=== PATIENT | female | born 1945 | race Hispanic/Latino ===

== ENCOUNTER 2017-11-22 14:01 | Outpatient (CLI) | payer MEDICARE, MEDICAID | END 2017-11-22 14:02 | disposition home or self-care (01) | LOC: BICRAD 14:01 | PROVIDERS: ATTEND Internal Medicine Rheumatology | DX: M05.79 Rheumatoid arthritis with rheumatoid factor of multiple sites without organ or systems involvement (principal) | CPT/HCPCS: 71046 ==

== ENCOUNTER 2018-05-02 09:53 | Outpatient (CLI) | payer MEDICARE, MEDICAID ==
--- NOTE | 2018-05-02 13:07 | MRI ---
MRI RIGHT SHOULDER WITHOUT CONTRAST: HISTORY: M25.511, right shoulder pain. Strain of right rotator cuff, S46.011A. COMPARISON: None. FINDINGS: BICEPS TENDON: Mild extraarticular biceps tenosynovitis. Moderate intraarticular tendinosis with in terstitial delamination type tear, extending to the supraglenoid tubercle. LABRUM: There is tear throughout the superior labrum, anterior and posterior, to the supraglenoid tu bercle. ROTATOR CUFF: Full-thickness, full-width supraspinatus and infraspinatus tendon tears from the footp rint, which are retracted through the mid humeral head. The torn fibers are mildly tendinotic. MUSCLES: There is edema of the supraspinatus and infraspinatus muscles. There is approximately 30% to 40% atrophy of both muscles. Teres minor is intact. The subscapularis muscle is normal. BONES: Moderate degenerative disease of the acromioclavicular joint. No acute fracture. IMPRESSION: 1. Full-thickness, full-width supraspinatus tendon tears, from the footprint, retracting the mid hum eral head, with 30% to 40% atrophy of the musculature. 2. Superior labral tearing, anterior and posterior to the biceps tendon anchor. 3. Articulation of the humeral head with the undersurface of the acromion due to the full-thickness rotator cuff tear, with subacromial and subdeltoid bursal effusion, moderate. 4. Interstitial delamination type tear, intraarticular biceps tendon. POS: [facility]
== END 2018-05-02 09:54 | disposition home or self-care (01) ==
LOC: BICMRI 09:53
PROVIDERS: ATTEND Orthopaedic Surgery
DX: S46.011A Strain of muscle(s) and tendon(s) of the rotator cuff of right shoulder, initial encounter (principal); S43.401A Unspecified sprain of right shoulder joint, initial encounter; M75.121 Complete rotator cuff tear or rupture of right shoulder, not specified as traumatic; M25.411 Effusion, right shoulder

== ENCOUNTER 2018-07-20 07:35 | Inpatient (IN) | payer MEDICARE, MEDICAID ==
[2018-07-19 11:06] VITALS: BMI 30.2
[2018-07-20] MEDS ORDERED: Sodium Chloride 0.9% 100 ML ONE (08:20)
[2018-07-20] MEDS ORDERED: Tranexamic Acid 1,000 MG/10 ML VIAL ONE (08:20)
--- NOTE | 2018-07-20 08:54 | RAD ---
Portable chest: HISTORY: Preop COMPARISON: 11/22/2017 FINDINGS: Lung ji are clear. Heart and mediastinum appear unremarkable. Vascularity is normal. Visualized osseous structures unremarkable. IMPRESSION: No acute finding
[2018-07-20] MEDS ORDERED: Fentanyl 100 MCG/2 ML VIAL ONE (08:59)
[2018-07-20] MEDS ORDERED: Midazolam HCl 2 mg/2 ml Vial ONE (08:59)
[2018-07-20 09:03] LABS: Bilirubin Negative (Negative); Blood, Urine Negative (Negative); Clarity CLOUDY (Clear); Glucose, Urine (Dipstick) Negative (Negative); Leukocyte Large (Negative); Nitrite Positive (Negative); Protein, Urine (Dipstick) Negative (Neg-Trace); Specific Gravity, Urine 1.014 (1.002-1.036)
[2018-07-20] MEDS ORDERED: Scopolamine 1.5 mg/72 hour Patch ONE (09:04)
[2018-07-20 09:07] LABS: Bacteria/HPF 4+ HPF (None Seen); Hyaline Casts/LPF 0-3 HYALINE CAST LPF (0-3 Hyaline); Pathc Cast-AUWi Flag 0.27 (0-2.49); RBC/HPF 0-3 HPF (0-3); Squamous Epithelial 0-3 HPF (0-3); WBC/HPF 21-50 HPF (0-3)
[2018-07-20] MEDS ORDERED: Ondansetron PF 4 MG/2 ML Vial ONE ×2 (09:11→14:55)
[2018-07-20 09:18] LABS: Urine Culture Reflex Yes Yes
[2018-07-20 09:21] LABS: Anion Gap 12 mmol/L (10-20); BUN (Urea Nitrogen) 9 mg/dL (9.8-20.1); Calc. Creatinine Clearance 87 mL/min (70-130); Calcium 9.4 mg/dL (7.8-10.44); Carbon Dioxide 24 mmol/L (23-31); Chloride 109 mmol/L (98-107); Estimated GFR-MDRD Greater than 90; Glucose 87 mg/dL (83-110); Potassium 4.2 mmol/L (3.5-5.1); Sodium 141 mmol/L (136-145)
[2018-07-20] MEDS ORDERED: Zolpidem Tartrate 5 MG TAB PO PRN (09:27)
[2018-07-20] MEDS ORDERED: traMADol HCl 50 MG TAB PO PRN (09:27)
[2018-07-20] MEDS ORDERED: Promethazine HCl 25 MG/ML VIAL IM PRN ×2 (09:27→12:08)
[2018-07-20] MEDS ORDERED: Ropivacaine 0.2% 550 ML 550 ML NERVE BLCK SCH (09:27)
[2018-07-20] MEDS ORDERED: Fentanyl 100 MCG/2 ML VIAL IV PRN (09:28)
[2018-07-20] MEDS ORDERED: HYDROcodone/Acetaminophen 7.5/325 mg Tablet PO PRN ×2 (09:29→09:30)
[2018-07-20] MEDS ORDERED: Acetaminophen 500 MG TAB PO PRN (09:33)
[2018-07-20 09:46] LABS: #Eosinphils 0.1 thou/uL (0.0-0.7); #Lymphocytes 1.1 thou/uL (1.20-3.40); #Monocytes 0.5 thou/uL (0.11-0.59); #Neutrophils 4.1 thou/uL (1.40-6.50); %Basophils 0.5 % (0.0-1.0); %Eosinophils 0.9 % (0.0-10.0); %Lymphocytes 19.9 % (21.0-51.0); %Monocytes 7.9 % (0.0-10.0); %Neutrophils 70.8 % (42.0-75.0); Mean Corpuscular HGB CONC 31.9 g/dL (32.0-36.0); Mean Corpuscular Hemoglobin 26.8 pg (27.0-31.0); Mean Platelet Volume 7.5 fL (7.4-10.4); Platelet Count 254 thou/uL (130-400); RBC Distribution Width 16.1 % (11.5-14.5); Red Blood Cell (RBC) Count 4.12 mill/uL (4.20-5.40); White Blood Cell (WBC) Count 5.8 thou/uL (4.8-10.8)
[2018-07-20 09:53] LABS: PTT 30.2 SEC (22.9-36.1); Prothrombin Time 13.7 SEC (12.0-14.7)
[2018-07-20] MEDS ORDERED: Levofloxacin 500 mg/D5W 100 ml Premix Bag ONE (10:11)
[2018-07-20] MEDS ORDERED: Ondansetron HCl/PF 4 MG/2 ML Vial IVP PRN (12:08)
[2018-07-20] MEDS ORDERED: Morphine Sulfate 2 MG/ML SYRINGE SLOW IVP PRN (12:08)
[2018-07-20] MEDS ORDERED: HYDROmorphone 2 MG/ML VIAL SLOW IVP PRN (12:08)
[2018-07-20] MEDS ORDERED: Promethazine HCl 25 MG/ML VIAL SLOW IVP PRN (12:08)
[2018-07-20] MEDS ORDERED: Methocarbamol 1 GM/10 ML VIAL SLOW IVP PRN (12:28)
[2018-07-20] MEDS ORDERED: Bisacodyl 10 MG SUPP PR PRN (12:28)
[2018-07-20] MEDS ORDERED: Methocarbamol 500 MG TAB PO PRN (12:28)
[2018-07-20] MEDS ORDERED: diphenhydrAMINE 50 MG CAP PO PRN (12:28)
[2018-07-20] MEDS ORDERED: Milk Of Magnesia 30 ML UDCUP PO PRN (12:28)
[2018-07-20] MEDS ORDERED: Ropivacaine 0.2% HCl/PF (40 MG/20 ML VIAL) ONE (13:18)
[2018-07-20] MEDS ORDERED: Ropivacaine 0.5% HCl/PF (150 MG/30 ML VIAL) ONE (13:18)
[2018-07-20] MEDS ORDERED: PHENYLEPHRINE-NS 100 MCG/ML 10 ML SYRINGE ONE (14:55)
[2018-07-20] MEDS ORDERED: PROPOFOL 200 MG/20 ML VIAL ONE (14:55)
[2018-07-20] MEDS ORDERED: Rocuronium Bromide 10 MG/ML (10ML VIAL) ONE (14:55)
[2018-07-20] MEDS ORDERED: ePHEDrine 50 MG/ML VIAL ONE (14:55)
[2018-07-20] MEDS ORDERED: Lidocaine 1% PF 5 ML VIAL ONE (14:55)
[2018-07-20] MEDS ORDERED: Glycopyrrolate 0.2 MG/ML 5 ML SYRINGE ONE (14:55)
[2018-07-20] MEDS ORDERED: Dexamethasone 20 MG/5 ML VIAL ONE (14:55)
[2018-07-20] MEDS: CeleCOXIB 100 MG CAP PO SCH (16:51)
[2018-07-20] MEDS: CEFAZOLIN 2 GM in Premix Bag 1 BAG IVPB SCH (16:54)
--- NOTE | 2018-07-20 19:10 | RAD ---
XR Shoulder Rt 2 View History: [Postop] Comparison: None. Findings: Satisfactory appearance right reverse total arthroplasty. Ribs are unremarkable. Impression: Satisfactory postoperative appearance.
[2018-07-20] MEDS: Famotidine 20 MG TAB PO SCH (19:35)
[2018-07-21] MEDS: traMADol HCl 50 MG TAB PO PRN ×2 (00:47→09:22)
[2018-07-21] MEDS: CEFAZOLIN 2 GM in Premix Bag 1 BAG IVPB SCH (00:48)
[2018-07-21 06:38] LABS: Hemoglobin 10.2 g/dL (12.0-16.0); Mean Corpuscular HGB CONC 30.8 g/dL (32.0-36.0); Mean Corpuscular Hemoglobin 26.1 pg (27.0-31.0); Mean Corpuscular Volume 84.7 fL (78.0-98.0); Mean Platelet Volume 7.6 fL (7.4-10.4); Platelet Count 255 thou/uL (130-400); RBC Distribution Width 16.2 % (11.5-14.5); Red Blood Cell (RBC) Count 3.89 mill/uL (4.20-5.40)
[2018-07-21] MEDS ORDERED: Ciprofloxacin 500 MG TAB PO SCH (08:15)
--- NOTE | 2018-07-21 09:03 | OP ---
DATE OF PROCEDURE: 07/20/2018 PREOPERATIVE DIAGNOSIS: Right supraspinatous tendon full-thickness tear with degenerative changes, glenohumeral joint. POSTOPERATIVE DIAGNOSIS: Right supraspinatous tendon full-thickness tear with degenerative changes, glenohumeral joint. PROCEDURE PERFORMED: Right reverse shoulder arthroplasty. [employer]OVE SUPERINTENDENT: Bryant Diaz PA-C. ANESTHESIOLOGIST: Dr. Crespo. ANESTHESIA: The patient received general endotracheal intubation and interscalene block. ESTIMATED BLOOD LOSS: 200 mL. TOURNIQUET TIME: None. IMPLANTS: A Tornier 25 mm baseplate with a 29 x 29 nonlocking screw, 35 and 20 locking screws. The patient received a 36 mm central sphere, a flex 3B stem, a flex central +0 and a +6 mm poly. ANTIBIOTICS: Ancef 2 g, vancomycin 1 g, Levaquin 500 mg. The patient received TXA 1 g. COMPLICATIONS: She had an abrasion of her skin while positioning her partial-thickness skin tear. HISTORY OF PRESENT ILLNESS: Ms. Carnes is a 72-year-old female, who presented to my clinic with right shoulder pain. The patient had had pain since March when she had a pop in her shoulder. The patient had difficulty with her activities. She had severe pain. The patient had MRI evidence showing a full-thickness supraspinatus and infraspinatus tear with retraction. She had failed conservative management and the patient desired surgery because of her pain in her right shoulder. I discussed with her the risks and benefits of right rotator cuff repair versus reverse shoulder arthroplasty. Discussed given the patient's atrophy as well as the size of the tear, I was concerned with her soft tissues that she may not be able to heal this, I felt that reverse would be consistent outcome. I discussed both options and the patient elected for reverse shoulder arthroplasty with biceps tenodesis. I discussed risks and benefits of surgery to include pain, scar, bleeding, infection, damage to vital structures, nonunion, fracture above and below the stem, need for further surgeries, loss of life or limb. The patient understood the risks and benefits of procedure and she elected to proceed. DESCRIPTION OF PROCEDURE: Time-out was performed designating the patient's right upper extremity as the operative site based on site, consents, markings. After time-out, the patient's right upper extremity was prepped and draped in sterile fashion. She was placed in a beach chair position. We made a deltopectoral incision down through skin, found her vein, retracted laterally and caudad portion of it was damaged; therefore, we ligated the vein. We then came into the deltopectoral interval, came down, found her biceps, peeled back her subscapularis and neck, as we reduced the head, she had a completely bald superior supraspinatus and infraspinatus tear with a large central cartilage defect in her humerus. We continued with cutting the head down, removed the osteophyte, we recut, broached up to a 2, finally reamed down to a 3, put our man hole cover in position and moved to the patient's glenoid. We did a 360 degree release, staying on bone, we cleaned up all. The patient had a very small glenoid face, so I placed my glenoid baseplate in a more superior position to ensure I had good coverage. I placed 25 mm baseplate, and liked overall alignment and position, 1.5 mm inferior lip. We then drilled our center hole, cleaned up all the osteophyte inferiorly and throughout. We then placed our baseplate in position, placed screw anterior, screw posterior, nonlocking and we then placed the superior inferior locking screw. We then placed the patient's baseplate on the glenoid and felt that she had good overhang. She has lateralization of her remainder of her lateral aspect of her scapula. We moved back to the glenoid, went up to size 3, reduced it, it was a little tight, so we smoothed down the surface, took some bone to decrease the tightness. Placed central 6 mm poly, reduced the shoulder in position, liked the overall alignment. She was not taut or conjoined flexion-extension and rotation were good overall. The motion was good and I was overall pleased with the patient's alignment. We then washed. We placed a #5 Ethibond around the shaft and used that to sew down the tendon using another segment of the 5, sewed down the tendon, cut our stitches. The biceps was too small and had no real soft tissue adhered to; therefore, thus allowed it to be a tenotomy. We washed. We closed the deltopectoral interval subcu and skin with bijal. The patient will be admitted to the hospital. She has allergies to multiple medications. We will start her on Tylenol as her main favorite for treatment of pain. We will follow inhouse postoperatively. Job ID: [id number] [facility]ITAL[facility]akayla
[2018-07-21] MEDS: Famotidine 20 MG TAB PO SCH ×2 (09:21→19:39)
[2018-07-21] MEDS: Ondansetron PF 4 MG/2 ML Vial IVP PRN ×2 (09:21→19:42)
[2018-07-21] MEDS: CeleCOXIB 100 MG CAP PO SCH (09:21)
[2018-07-21] MEDS: Cipro 250 MG TAB PO SCH (19:39)
[2018-07-22] MEDS: Cipro 250 MG TAB PO SCH (05:10)
[2018-07-22] MEDS: traMADol HCl 50 MG TAB PO PRN (08:47)
[2018-07-22] MEDS: Famotidine 20 MG TAB PO SCH (08:47)
[2018-07-22] MEDS: CeleCOXIB 100 MG CAP PO SCH (08:47)
[2018-07-22] MEDS: Ondansetron PF 4 MG/2 ML Vial IVP PRN (08:48)
[2018-07-22] MEDS ORDERED: Scopolamine 1.5 mg/72 hour Patch TD SCH (09:30)
[2018-07-22 12:00] VITALS: BP 114/67; TEMP 98.1
--- NOTE | 2018-07-23 05:45 | DIS ---
DATE OF ADMISSION: 07/20/2018 DATE OF DISCHARGE: 07/22/2018 ADMITTING DIAGNOSIS: Right massive rotator cuff tear. DISCHARGE DIAGNOSES: 1. Right massive rotator cuff tear. 2. Urinary tract infection. PROCEDURE PERFORMED: Right reverse total shoulder arthroplasty. HISTORY OF PRESENT ILLNESS: Ms. Deyvi Owens is a 72-year-old female with right shoulder pain and difficulty with overhead activities. Pain was severe. I discussed with the patient that given her MRI evidence I do not feel like her rotator cuff is repairable and that a reverse could be the best course of action for pain relief. I discussed risks and benefits of surgery. She would like to proceed. She underwent an uneventful right total shoulder. H and H stabilized. She is a [employer], therefore did not desire blood products. Postoperatively, she was stable. She was a little bit tired and woozy as she was before. The patient was given tramadol for pain med as well as Tylenol and her previous Celebrex without any issues. The patient will be discharged to home with tramadol. She was diagnosed with what appeared to be potentially UTI with E coli. Therefore, she will be discharged home with Cipro for seven days. The patient will remain weightbearing as tolerated. She is to stay in her sling, perform elbow, wrist, and hand motion of her right upper extremity until she follows up, at which time in a little bit over 14 days for staple removal. The patient's outlook is good. Job ID: [id number]
== END 2018-07-22 13:33 | disposition home or self-care (01) | DRG 483 ==
LOC: SJJU 07:35 → EDSTATUS 12:28 → SURG A 14:30
PROVIDERS: ADMIT Orthopaedic Surgery; ATTEND Orthopaedic Surgery
PROC: 0RRJ00Z Replacement of Right Shoulder Joint with Reverse Ball and Socket Synthetic Substitute, Open Approach (ICD-10-PCS; principal; 2018-07-20)
DX: M75.121 Complete rotator cuff tear or rupture of right shoulder, not specified as traumatic (principal); N39.0 Urinary tract infection, site not specified; M19.011 Primary osteoarthritis, right shoulder; B96.20 Unspecified Escherichia coli [E. coli] as the cause of diseases classified elsewhere; Z88.8 Allergy status to other drugs, medicaments and biological substances; Z88.6 Allergy status to analgesic agent; Z90.49 Acquired absence of other specified parts of digestive tract
CPT/HCPCS: 36415; 71045; 80048; 81001; 85025; 85027; 85610; 85730; 87077; 87086; 87186; 93005; 93010; A4306; J0690; J1100; J1956; J2001; J2250; J2405; J2704; J2795; J3010; J3370; J3490

== ENCOUNTER 2020-08-26 09:47 | Outpatient (CLI) | payer MEDICARE, MEDICAID | END 2020-08-26 09:48 | disposition home or self-care (01) | LOC: BICRAD 09:47 | PROVIDERS: ATTEND Family Medicine | DX: J45.41 Moderate persistent asthma with (acute) exacerbation (principal); R05 Cough | CPT/HCPCS: 71045 ==